=== PATIENT | male | born 1990 | race Caucasian/White ===

== ENCOUNTER 2018-02-01 23:31 | Emergency (ER) | payer OTHER ==
[~2018-02-01] VITALS: Ht 175.3 cm; Wt 71.7 kg
[~2018-02-01 23:31] MED LIST: GABAPENTIN 100100 MG PO; HYDROCODONE-AP1 EAC6 PO; ZANAFLEX4 MG PO
[2018-02-01 23:42] VITALS: BP 125/86
== END 2018-02-02 00:24 | disposition home or self-care (01) ==
LOC: ER 23:31
DX: Z23 Encounter for immunization (principal); M54.2 Cervicalgia; G89.29 Other chronic pain

== ENCOUNTER 2018-02-09 00:18 | Emergency (ER) | payer OTHER ==
[~2018-02-09] VITALS: Ht 175.3 cm; Wt 85.7 kg
[2018-02-09 01:30] VITALS: BP 142/85
== END 2018-02-09 01:30 | disposition home or self-care (01) ==
LOC: ER 00:18
DX: Z23 Encounter for immunization (principal); M54.2 Cervicalgia; G89.29 Other chronic pain